=== PATIENT | female | born 2000 | race Caucasian/White ===

== ENCOUNTER 2020-03-26 12:05 | Emergency (ER) | payer BC ==
[~2020-03-26] VITALS: Ht 165.1 cm; Wt 113.6 kg
[2020-03-26 13:35] VITALS: BP 128/74; PULSE 78; TEMP 97.6
== END 2020-03-26 13:42 | disposition home or self-care (01) ==
LOC: COL.ER 12:05
DX: S93.401A Sprain of unspecified ligament of right ankle, initial encounter (principal); W18.42XA Slipping, tripping and stumbling without falling due to stepping into hole or opening, initial encounter